=== PATIENT | female | born 1965 | race Caucasian/White ===

== ENCOUNTER → 2016-11-02 | Outpatient (CLI) | payer OTHER ==
[~2016-11-02] MED LIST: /ESCI20TA PO; ADVA230INH INH; ALBU17IN2 INH; ALBUTEROL; ASPI1TAB PO; AVELOX PO; CYCL10TA PO; HYDR10TAB PO; LISI10TA2 PO; LISI10TA4 PO; MOTR200T44 PO; PERC7.5T12 PO; PERCOCET PO; PRED20TA PO; TYLE325T5 PO; mobic PO; nicotine patch TD
[2016-11-02 08:11] LABS: MEAN CORPUSCULAR HGB CONC 31.6 g/dl (32.0-36.5); RED CELL DISTRIBUTION WIDTH 13.9 % (11.5-14.5); WHITE BLOOD COUNT 9.9 K/mm3 (4.0-10.0)
[2016-11-02 08:24] LABS: ALBUMIN 3.2 GM/DL (3.2-5.2); ALBUMIN/GLOBULIN RATIO 1.03 (1.00-1.93); ALKALINE PHOSPHATASE 96 U/L (45-117); ALT/SGPT 16 U/L (12-78); ANION GAP 6 MEQ/L (8-16); AST/SGOT 13 U/L (15-37); BILIRUBIN,TOTAL 0.3 MG/DL (0.2-1.0); BLOOD UREA NITROGEN 12 MG/DL (7-18); CALCIUM LEVEL 8.8 MG/DL (8.5-10.1); CARBON DIOXIDE LEVEL 30 MEQ/L (21-32); CHLORIDE LEVEL 107 MEQ/L (98-107); CREATININE FOR GFR 0.68 MG/DL (0.55-1.02); GLOMERULAR FILTRATION RATE > 60.0 (>58); GLUCOSE, FASTING 94 MG/DL (70-105); POTASSIUM SERUM 4.4 MEQ/L (3.5-5.1); SODIUM LEVEL 143 MEQ/L (136-145); TOTAL PROTEIN 6.3 GM/DL (6.4-8.2)
== END ==
LOC: M LAB 07:22
PROVIDERS: ATTEND Surgery
DX: D12.2 Benign neoplasm of ascending colon (principal)

== ENCOUNTER 2016-12-02 02:11 | Emergency (ER) | payer OTHER ==
[~2016-12-02] VITALS: Ht 152.4 cm; Wt 50.8 kg
[2016-12-02] MEDS ORDERED: ADACEL/BOOSTRIX VACCINE (DIPHTH/PERTUSS/ACELL/TETANUS)0.5ML SYR (90715) IM ONE (02:30)
[2016-12-02] MEDS ORDERED: CEPHALEXIN 500 MG CAP PO ONE (02:30)
[2016-12-02] MEDS ORDERED: DERMABOND TOPICAL SKIN ADHESIVE TOP ONE (02:45)
[2016-12-02] MEDS ORDERED: ACETAMINOPHEN TAB 650MG DOSE (2X325MG) PO ONE (02:45)
[2016-12-02] MEDS ORDERED: NORCO 5/325MG TABLET (BULK) PO ONE (02:45)
[2016-12-02] MEDS ORDERED: KEFL500C7 PO (02:54)
[2016-12-02] MEDS ORDERED: MOTR200T44 PO (02:55)
[2016-12-02 03:13] VITALS: BP 138/72
--- NOTE | 2016-12-02 09:58 | REP ---
RIGHT FINGER SERIES: Four views. HISTORY: Question fracture. Injury to the distal aspect of the 3rd digit. FINDINGS: Four views of the right index, long and ring fingers demonstrate normal bones, joints, and soft tissues. No fracture or subluxation is seen. No opaque foreign body noted. IMPRESSION: No fracture noted. Signed by Rafael Berkowitz MD 12/02/2016 10:14 A
== END 2016-12-02 03:15 | disposition home or self-care (01) ==
LOC: M ED 03:01
DX: S61.212A Laceration without foreign body of right middle finger without damage to nail, initial encounter (principal); S60.031A Contusion of right middle finger without damage to nail, initial encounter; W23.1XXA Caught, crushed, jammed, or pinched between stationary objects, initial encounter; Y92.89 Other specified places as the place of occurrence of the external cause; Y93.89 Activity, other specified; Y99.0 Civilian activity done for income or pay; Z88.1 Allergy status to other antibiotic agents

== ENCOUNTER 2018-08-29 13:10 | Emergency (ER) | payer OTHER ==
[2018-08-29 14:41] LABS: URIC ACID 2.7 MG/DL (2.6-6.0)
== END 2018-08-29 15:13 | disposition home or self-care (01) ==
LOC: M ED 13:10
DX: M25.571 Pain in right ankle and joints of right foot (principal); M25.471 Effusion, right ankle; J44.9 Chronic obstructive pulmonary disease, unspecified; F41.9 Anxiety disorder, unspecified; F32.9 Major depressive disorder, single episode, unspecified; F17.210 Nicotine dependence, cigarettes, uncomplicated; Z88.1 Allergy status to other antibiotic agents; Z79.899 Other long term (current) drug therapy
CPT/HCPCS: 73610

== ENCOUNTER → 2018-08-29 | Outpatient (CLI) | payer OTHER | LOC: M LRY 12:06 | DX: M25.571 Pain in right ankle and joints of right foot (principal); M79.671 Pain in right foot; Z53.9 Procedure and treatment not carried out, unspecified reason ==

== ENCOUNTER 2018-12-04 04:00 | Emergency (ER) | payer OTHER ==
[~2018-12-04] VITALS: Ht 152.4 cm; Wt 59.1 kg
[~2018-12-04 04:00] MED LIST changes: +ESCI20TA; +IBUP-1022 PO; +KEFL500C17 PO; +PERC5TAB12 PO
[2018-12-04] MEDS ORDERED: MORPHINE 4 MG/ML 1ML VIAL/SYRINGE (J2270) IV ONE (04:45)
[2018-12-04] MEDS ORDERED: AMPICILLIN SOD/SULBACTAM SOD 3 GM in D5W MINI-BAG PLUS 100 ML IV ONE (04:45)
--- NOTE | 2018-12-04 05:14 | REPVR ---
EXAM: CT Maxillofacial Without Contrast EXAM DATE/TIME: 12/04/2018 4:44 AM CLINICAL HISTORY: 53 years old, female; Pain; Jaw pain; Additional info: Eval for r lower periodontal abscess TECHNIQUE: Axial computed tomography images of the face without intravenous contrast. All CT scans at this facility use at least one of these dose optimization techniques: automated exposure control; mA and/or kV adjustment per patient size (includes targeted exams where dose is matched to clinical indication); or iterative reconstruction. Coronal and sagittal reformatted images were created and reviewed. COMPARISON: No relevant prior studies available. FINDINGS: Orbits: Unremarkable. Sinuses: Normal. No air-fluid levels. Bones/joints: No acute fracture. Soft tissues: Moderate soft tissue swelling in the right perimandibular region without any discrete abscess formation. Findings the present marked cellulitis . IMPRESSION: Moderate soft tissue swelling in the right perimandibular region without any discrete abscess formation. Findings the present marked cellulitis . Electronically signed by: Mago Skinner On 12/04/2018 05:13:59 AM
[2018-12-04] MEDS ORDERED: LIDOCAINE W/EPINEPHRINE 1% 20ML VIAL SC ONE (05:15)
[2018-12-04] MEDS ORDERED: AUGM500T34 PO (05:55)
[2018-12-04] MEDS ORDERED: NORCO 5/325MG TABLET (BULK FOR ED) PO ONE (06:00)
[2018-12-04 06:10] VITALS: BP 147/78
--- NOTE | 2018-12-04 07:32 | ED PDOC ---
Post-Departure Follow-Up ct max fac faxed to [email or web address] for fu Belkis Monson MD Dec 04, 2018 07:32
== END 2018-12-04 06:16 | disposition home or self-care (01) ==
LOC: M ED 04:00
DX: K12.2 Cellulitis and abscess of mouth (principal); R68.84 Jaw pain; F41.9 Anxiety disorder, unspecified; F32.9 Major depressive disorder, single episode, unspecified; F17.200 Nicotine dependence, unspecified, uncomplicated; Z88.1 Allergy status to other antibiotic agents; Z79.899 Other long term (current) drug therapy
CPT/HCPCS: 70486; 96374; 96375; 99284; J2270

== ENCOUNTER → 2020-03-06 | Outpatient (CLI) | payer OTHER ==
[~2020-03-06] MED LIST changes: -/ESCI20TA PO; -ASPI1TAB PO; +ASPI81TA26 PO; +AUGM500T34 PO; +CYCL-707 PO; -CYCL10TA PO; +HYDR-2773 PO; -HYDR10TAB PO; +LEXA1TAB2 PO; +LISI10TA15 PO; -LISI10TA2 PO
--- NOTE | 2020-03-07 01:45 | REP ---
Clinical: Contusion. Technique: AP, lateral, bilateral oblique views of the left fifth digit. Findings: There is a nondisplaced oblique fracture with subtle posterior angulation at the base of the proximal phalanx extending to the articular surface of the MCP joint. Impression: Oblique fracture at the base of the proximal phalanx. Electronically Signed by Srinivas Gupta MD 03/07/2020 01:37 A
== END ==
LOC: M WUC 08:18
PROVIDERS: ATTEND Nurse Practitioner Family
DX: S62.617A Displaced fracture of proximal phalanx of left little finger, initial encounter for closed fracture (principal); X58.XXXA Exposure to other specified factors, initial encounter; Y92.9 Unspecified place or not applicable

== ENCOUNTER → 2021-10-06 | Outpatient (REF) ==
[~2021-10-06] MED LIST changes: -ESCI20TA; +ESCI20TA16; +LISI10TA22 PO; -LISI10TA4 PO
== END ==
LOC: M LAB 16:23
PROVIDERS: ATTEND Nurse Practitioner Adult Health
DX: Z00.8 Encounter for other general examination (principal)

== ENCOUNTER → 2021-11-10 | Outpatient (REF) ==
[~2021-11-10] MED LIST changes: -LISI10TA15 PO; +LISI10TA24 PO
== END ==
LOC: M EMP 13:34
PROVIDERS: ATTEND Family Medicine
DX: Z11.52 Encounter for screening for COVID-19 (principal)

== ENCOUNTER → 2022-03-16 | Outpatient (CLI) | payer OTHER ==
[~2022-03-16] MED LIST changes: +ATOR1TAB21 PO; +POTA-136 PO
== END ==
LOC: M SOG 10:06
PROVIDERS: ATTEND Orthopaedic Surgery Hand Surgery
DX: M79.645 Pain in left finger(s) (principal)

== ENCOUNTER → 2022-03-29 | Outpatient (CLI) | payer OTHER ==
[~2022-03-29] MED LIST changes: +TRAM50TA2 PO
== END ==
LOC: M LABSMTC 10:14
PROVIDERS: ATTEND Anesthesiology
DX: Z01.812 Encounter for preprocedural laboratory examination (principal); Z20.822 Contact with and (suspected) exposure to COVID-19

== ENCOUNTER 2022-03-31 08:35 | Day surgery (SDC) | payer OTHER ==
[~2022-03-31] VITALS: Ht 152.4 cm; Wt 62.1 kg
[~2022-03-31 08:35] MED LIST changes: +LIDOCAINE W/EPINEPHRINE 1% 20ML VIAL XX ONE; +SODIUM BICARBONATE 8.4% INJ 50MEQ 50 ML VIAL XX ONE; -TRAM50TA2 PO
[2022-03-31] MEDS ORDERED: BACITRACIN OINTMENT 30GM TUBE As Ordered ONE (10:35)
[2022-03-31] MEDS ORDERED: TRAM50TA2 PO (10:48)
[2022-03-31 11:20] VITALS: BP 152/76
== END 2022-03-31 11:33 | disposition home or self-care (01) ==
LOC: M SDC 08:35
PROVIDERS: ATTEND Orthopaedic Surgery Hand Surgery
DX: M65.312 Trigger thumb, left thumb (principal); M65.352 Trigger finger, left little finger; K21.9 Gastro-esophageal reflux disease without esophagitis; F41.9 Anxiety disorder, unspecified; F32.A Depression, unspecified; J44.9 Chronic obstructive pulmonary disease, unspecified; F17.210 Nicotine dependence, cigarettes, uncomplicated; F12.10 Cannabis abuse, uncomplicated; Z79.899 Other long term (current) drug therapy; E78.2 Mixed hyperlipidemia; Z88.1 Allergy status to other antibiotic agents

== ENCOUNTER → 2022-04-14 | Outpatient (CLI) | payer OTHER ==
[~2022-04-14] MED LIST changes: -LIDOCAINE W/EPINEPHRINE 1% 20ML VIAL XX ONE; -SODIUM BICARBONATE 8.4% INJ 50MEQ 50 ML VIAL XX ONE; +TRAM50TA2 PO
== END ==
LOC: M LABSMTC 10:47
PROVIDERS: ATTEND Anesthesiology
DX: Z01.818 Encounter for other preprocedural examination (principal); Z11.52 Encounter for screening for COVID-19

== ENCOUNTER → 2022-08-04 | Outpatient (CLI) | payer OTHER | LOC: M LABSMTC 10:20 | PROVIDERS: ATTEND Anesthesiology | DX: Z01.812 Encounter for preprocedural laboratory examination (principal); Z11.52 Encounter for screening for COVID-19 ==

== ENCOUNTER 2023-10-05 11:29 | Emergency (ER) | payer OTHER ==
[~2023-10-05] VITALS: Ht 152.4 cm; Wt 71.4 kg
[2023-10-05] MEDS ORDERED: ONDANSETRON 4MG 2ML VIAL IV ONE (13:00)
[2023-10-05] MEDS ORDERED: MORPHINE 4 MG/ML 1ML VIAL IV ONE ×2 (13:00→15:20)
[2023-10-05] MEDS ORDERED: diphenhydrAMINE 50MG/ML VIAL IV STA (15:57)
[2023-10-05 16:00] LABS: BASO # 0.1 10^3/uL (0.0-0.2); BASO % 0.8 % (0.0-1.0); EOS # 0.2 10^3/uL (0.0-0.5); EOS % 1.9 % (0.0-3.0); HEMATOCRIT 43.5 % (36.0-47.0); HEMOGLOBIN 13.9 g/dl (12.0-15.5); LYMPH # 1.6 10^3/uL (1.5-5.0); LYMPH % 15.8 % (24.0-44.0); MEAN CORPUSCULAR HEMOGLOBIN 28.7 pg (27.0-33.0); MEAN CORPUSCULAR VOLUME 89.9 fl (80.0-96.0); MONO # 0.4 10^3/uL (0.0-0.8); MONO % 4.3 % (2.0-8.0); PLATELET COUNT, AUTOMATED 268 10^3/uL (150-450); RED BLOOD COUNT 4.84 10^6/uL (4.00-5.40); WHITE BLOOD COUNT 10.3 10^3/uL (4.0-10.0)
[2023-10-05 16:12] LABS: INR 1.03; PROTHROMBIN TIME 13.2 SECONDS (12.5-14.5)
[2023-10-05 16:13] LABS: PARTIAL THROMBOPLASTIN TIME 28.7 SECONDS (24.8-34.2)
[2023-10-05 17:27] LABS: ALBUMIN 3.6 G/DL (3.2-5.2); ALKALINE PHOSPHATASE 115 U/L (46-116); ALT/SGPT 12 U/L (7.0-40); AST/SGOT 14 U/L (<34); BILIRUBIN,TOTAL 0.5 MG/DL (0.3-1.2); BLOOD UREA NITROGEN 9 MG/DL (9-23); CALCIUM LEVEL 8.9 MG/DL (8.5-10.1); CARBON DIOXIDE LEVEL 26 MMOL/L (20-31); CHLORIDE LEVEL 107 MMOL/L (98-107); GLOMERULAR FILTRATION RATE > 60.0 (>51); GLUCOSE, FASTING 111 MG/DL (60-100); POTASSIUM SERUM 4.6 MMOL/L (3.5-5.1); SODIUM LEVEL 139 MMOL/L (136-145); TOTAL PROTEIN 6.6 G/DL (5.7-8.2)
[2023-10-05 17:30] LABS: TOTAL 25(OH) VITAMIN D 24.7 NG/ML (20.0-100.0)
[2023-10-05] MEDS ORDERED: PERC5TAB12 PO (17:37)
[2023-10-05 17:56] VITALS: BP 129/68; TEMP 98.9; O2SAT 95
[2023-10-07] MEDS ORDERED: GABA-282 PO (08:08)
== END 2023-10-05 17:58 | disposition home or self-care (01) ==
LOC: M ED 11:29 → EDBD 11:29 → M ED 17:58
DX: S42.292A Other displaced fracture of upper end of left humerus, initial encounter for closed fracture (principal); W01.0XXA Fall on same level from slipping, tripping and stumbling without subsequent striking against object, initial encounter; J45.909 Unspecified asthma, uncomplicated; J44.9 Chronic obstructive pulmonary disease, unspecified; K59.00 Constipation, unspecified; F17.200 Nicotine dependence, unspecified, uncomplicated; Z88.1 Allergy status to other antibiotic agents; Z79.52 Long term (current) use of systemic steroids; Z79.02 Long term (current) use of antithrombotics/antiplatelets; Z79.891 Long term (current) use of opiate analgesic; Z79.899 Other long term (current) drug therapy
CPT/HCPCS: 73060; 73080; 73090; 80053; 82306; 85025; 85610; 85730; 93041; 94760; 96374; 96375; 99285; J1200; J2405

== ENCOUNTER → 2023-10-06 | Outpatient (CLI) | payer OTHER ==
[~2023-10-06] MED LIST changes: +FLUT1BLS5 INH; +GABA-282 PO; +IPRA0.00 INH; +OXYC1TAB23 PO
== END ==
LOC: M SOG 08:57
PROVIDERS: ATTEND Orthopaedic Surgery
DX: S42.302A Unspecified fracture of shaft of humerus, left arm, initial encounter for closed fracture (principal); Y93.9 Activity, unspecified; Y92.9 Unspecified place or not applicable

== ENCOUNTER 2023-10-08 09:58 | Emergency (ER) | payer OTHER ==
[~2023-10-08] VITALS: Ht 152.4 cm; Wt 72.9 kg
[~2023-10-08 09:58] MED LIST changes: -FLUT1BLS5 INH; -IPRA0.00 INH; -OXYC1TAB23 PO
[2023-10-08] MEDS ORDERED: MORPHINE 4 MG/ML 1ML VIAL IV ONE ×2 (12:10→14:20)
[2023-10-08] MEDS ORDERED: MED REC IN PROGRESS XX SCH (12:45)
[2023-10-08] MEDS ORDERED: ONDANSETRON 4MG 2ML VIAL IV ONE (13:00)
[2023-10-08 13:06] LABS: BASO % 0.8 % (0.0-1.0); EOS % 0.8 % (0.0-3.0); HEMOGLOBIN 12.6 g/dl (12.0-15.5); LYMPH # 0.5 10^3/uL (1.5-5.0); LYMPH % 9.6 % (24.0-44.0); MEAN CORPUSCULAR HGB CONC 33.2 g/dl (32.0-36.5); MEAN CORPUSCULAR VOLUME 87.4 fl (80.0-96.0); MONO # 0.5 10^3/uL (0.0-0.8); MONO % 8.8 % (2.0-8.0); NEUTROPHILS # 4.3 10^3/uL (1.5-8.5); NEUTROPHILS % 79.8 % (36.0-66.0); PLATELET COUNT, AUTOMATED 195 10^3/uL (150-450); RED BLOOD COUNT 4.35 10^6/uL (4.00-5.40); WHITE BLOOD COUNT 5.3 10^3/uL (4.0-10.0)
[2023-10-08 13:28] LABS: BLOOD UREA NITROGEN 8 MG/DL (9-23); CALCIUM LEVEL 8.9 MG/DL (8.5-10.1); CARBON DIOXIDE LEVEL 27 MMOL/L (20-31); CHLORIDE LEVEL 105 MMOL/L (98-107); CREATININE FOR GFR 0.56 MG/DL (0.55-1.30); GLOMERULAR FILTRATION RATE > 60.0 (>51); GLUCOSE, FASTING 119 MG/DL (60-100); POTASSIUM SERUM 4.3 MMOL/L (3.5-5.1); SODIUM LEVEL 137 MMOL/L (136-145)
[2023-10-08 13:41] LABS: RSV AMPLIFICATION NEGATIVE (NEGATIVE)
[2023-10-08] MEDS ORDERED: MED REC CURRENTLY UNOBTAINABLE XX SCH (15:00)
[2023-10-08] MEDS ORDERED: OXYC1TAB23 PO (16:19)
[2023-10-08] MEDS ORDERED: FLUT1BLS5 INH (16:19)
[2023-10-08] MEDS ORDERED: IPRA0.00 INH (16:19)
[2023-10-08] MEDS ORDERED: HOME MED LIST COMPLETE! XX SCH (16:20)
[2023-10-08 17:09] VITALS: BP 156/93; TEMP 97.9; O2SAT 97
== END 2023-10-08 17:11 | disposition home or self-care (01) ==
LOC: M ED 09:58
DX: U07.1 COVID-19 (principal); S42.342A Displaced spiral fracture of shaft of humerus, left arm, initial encounter for closed fracture; J45.909 Unspecified asthma, uncomplicated; K59.00 Constipation, unspecified; F17.200 Nicotine dependence, unspecified, uncomplicated; Z88.1 Allergy status to other antibiotic agents; Z79.52 Long term (current) use of systemic steroids; Z79.02 Long term (current) use of antithrombotics/antiplatelets; Z79.891 Long term (current) use of opiate analgesic; Z79.899 Other long term (current) drug therapy
CPT/HCPCS: 73060; 80048; 85025; 87631; 96374; 96375; 99284; J2405

== ENCOUNTER 2023-10-11 09:45 | Observation (INO) | payer OTHER ==
[2023-10-11] VITALS (7 sets, daily range): BP systolic 107–148; BP diastolic 64–83; TEMP 96.8–98.1; O2SAT 92–99
[~2023-10-11] VITALS: Ht 152.4 cm; Wt 69.4 kg
[~2023-10-11 09:45] MED LIST changes: +FLUT1BLS5 INH; +IPRA0.00 INH; +OXYC1TAB23 PO; +TRANEXAMIC ACID INJection 1,000 MG in NS 100 ML IV ONE; +ceFAZolin SOD 2 GM in IV 1 EA IV ONE
[2023-10-11] MEDS ORDERED: ONDA-83 PO (10:52)
[2023-10-11] MEDS ORDERED: LR 1,000 ML IV SCH ×3 (10:55→15:15)
[2023-10-11] MEDS ORDERED: ROPIvacaine 0.5% 30ML VIAL PN ONE (11:35)
[2023-10-11] MEDS ORDERED: ACETAMINOPHEN 1000MG 100ML IV BAG As Ordered ONE (11:45)
[2023-10-11] MEDS ORDERED: SUGAMMADEX SODIUM 500 MG/5 ML VIAL (BRIDION) As Ordered ONE (11:45)
[2023-10-11] MEDS ORDERED: ONDANSETRON 4MG 2ML VIAL As Ordered ONE (11:45)
[2023-10-11] MEDS ORDERED: propofoL 200 MG/20 ML VIAL As Ordered ONE (11:45)
[2023-10-11] MEDS ORDERED: KETOROLAC 60MG 2ML VIAL As Ordered ONE (11:45)
[2023-10-11] MEDS ORDERED: ROCURONIUM BROMIDE 50MG/5ML VIAL As Ordered ONE (11:45)
[2023-10-11] MEDS ORDERED: LIDOCAINE 2% 100MG/5ML SDV (FOR ANES.) As Ordered ONE (11:45)
[2023-10-11] MEDS ORDERED: fentaNYL 100 MCG/2 ML INJECTION As Ordered ONE (11:46)
[2023-10-11] MEDS: MIDAZOLAM INJ 2MG/2ML VIAL IV PRN ×2 (12:19→16:41)
[2023-10-11] MEDS: fentaNYL 100 MCG/2 ML INJECTION IV PRN ×2 (12:20→16:41)
[2023-10-11] MEDS ORDERED: PHENYLephrine 500MCG 5ML (100MCG/ML) SYRINGE As Ordered ONE (12:59)
[2023-10-11] MEDS ORDERED: HYDROmorphone HCL 2MG/ML 1ML VIAL As Ordered ONE (14:59)
[2023-10-11] MEDS: ACETAMINOPHEN TAB 650MG DOSE (2X325MG) PO SCH ×2 (15:15→20:06)
[2023-10-11] MEDS ORDERED: oxyCODONE 5MG TAB PO PRN ×3 (15:15)
[2023-10-11] MEDS ORDERED: ONDANSETRON 4MG 2ML VIAL IV PRN ×2 (15:15)
[2023-10-11] MEDS ORDERED: SENNA 8.6 MG TAB (SENOKOT) PO PRN (15:15)
[2023-10-11] MEDS ORDERED: HYDROMORPHONE HCL 0.5 MG/ 0.5 ML SYRINGE IV PRN (15:15)
[2023-10-11] MEDS ORDERED: fentaNYL 100 MCG/2 ML INJECTION IV PRN (15:15)
[2023-10-11] MEDS ORDERED: PROMETHAZINE 25MG/ML 1ML VIAL IV PRN (15:45)
[2023-10-11] MEDS: ceFAZolin SOD 2 GM in IV 1 EA IV SCH (20:05)
[2023-10-11] MEDS: DOCUSATE SODIUM 100MG CAPSULE PO SCH (20:05)
[2023-10-11] MEDS: ASPIRIN 81MG ENTERIC TABLET PO SCH (20:06)
[2023-10-11] MEDS ORDERED: ATORVASTATIN 20 MG TAB PO SCH (21:00)
[2023-10-12 01:30] VITALS: BP 104/61; TEMP 97.2; O2SAT 96
[2023-10-12] MEDS: ACETAMINOPHEN TAB 650MG DOSE (2X325MG) PO SCH ×2 (02:16→09:28)
[2023-10-12] MEDS: ceFAZolin SOD 2 GM in IV 1 EA IV SCH (04:05)
[2023-10-12 05:30] VITALS: BP 103/61; TEMP 97.9; O2SAT 97
[2023-10-12 06:11] LABS: HEMATOCRIT 31.6 % (36.0-47.0); HEMOGLOBIN 10.3 g/dl (12.0-15.5); MEAN CORPUSCULAR HEMOGLOBIN 29.2 pg (27.0-33.0); MEAN CORPUSCULAR HGB CONC 32.6 g/dl (32.0-36.5); MEAN CORPUSCULAR VOLUME 89.5 fl (80.0-96.0); PLATELET COUNT, AUTOMATED 197 10^3/uL (150-450); RED BLOOD COUNT 3.53 10^6/uL (4.00-5.40)
[2023-10-12 06:22] LABS: INR 1.12; PROTHROMBIN TIME 14.1 SECONDS (12.5-14.5)
[2023-10-12 06:36] LABS: ALBUMIN 2.8 G/DL (3.2-5.2); ALKALINE PHOSPHATASE 86 U/L (46-116); ALT/SGPT < 9 U/L (7.0-40); AST/SGOT 15 U/L (<34); BILIRUBIN,TOTAL 0.6 MG/DL (0.3-1.2); BLOOD UREA NITROGEN 17 MG/DL (9-23); CALCIUM LEVEL 8.1 MG/DL (8.5-10.1); CARBON DIOXIDE LEVEL 28 MMOL/L (20-31); CHLORIDE LEVEL 104 MMOL/L (98-107); CREATININE FOR GFR 0.65 MG/DL (0.55-1.30); GLOMERULAR FILTRATION RATE > 60.0 (>51); GLUCOSE, FASTING 103 MG/DL (60-100); PHOSPHORUS LEVEL 3.9 MG/DL (2.5-4.9); POTASSIUM SERUM 3.5 MMOL/L (3.5-5.1); SODIUM LEVEL 138 MMOL/L (136-145); TOTAL PROTEIN 5.3 G/DL (5.7-8.2)
[2023-10-12] MEDS: ASPIRIN 81MG ENTERIC TABLET PO SCH (07:54)
[2023-10-12] MEDS ORDERED: FERROUS SULFATE 325MG TAB PO SCH (09:00)
[2023-10-12] MEDS ORDERED: ASCORBIC ACID 500 MG TAB PO SCH (09:00)
[2023-10-12] MEDS: DOCUSATE SODIUM 100MG CAPSULE PO SCH (09:27)
[2023-10-12 09:30] VITALS: BP 133/90; TEMP 98.2; O2SAT 96
[2023-10-12] MEDS ORDERED: ASPI81TAEC PO (10:48)
[2023-10-12] MEDS ORDERED: OXYC-517 PO (10:48)
[2023-10-12] MEDS ORDERED: CEFD1CAP9 PO (11:29)
== END 2023-10-12 11:59 | disposition home or self-care (01) ==
LOC: M SDC 09:45 → M MSPAV 09:46
PROVIDERS: ADMIT Orthopaedic Surgery; ATTEND Orthopaedic Surgery
DX: S42.302A Unspecified fracture of shaft of humerus, left arm, initial encounter for closed fracture (principal); W54.1XXA Struck by dog, initial encounter; Y92.89 Other specified places as the place of occurrence of the external cause; Y93.9 Activity, unspecified; Y99.9 Unspecified external cause status; K44.9 Diaphragmatic hernia without obstruction or gangrene; R13.10 Dysphagia, unspecified; Z87.891 Personal history of nicotine dependence; Z88.1 Allergy status to other antibiotic agents; Z79.899 Other long term (current) drug therapy
CPT/HCPCS: 24516; 36415; 64418; 73060; 76000; 80053; 80069; 85027; 85610; 97161; C1713; C1769; J0131; J0665; J0690; J0744; J1100; J1170; J1885; J2250; J2371; J2405; J2550; J3010

== ENCOUNTER → 2023-10-25 | Outpatient (CLI) | payer OTHER ==
[~2023-10-25] MED LIST changes: +ASPI81TAEC PO; +CEFD1CAP9 PO; +ONDA-83 PO; +OXYC-517 PO; -TRANEXAMIC ACID INJection 1,000 MG in NS 100 ML IV ONE; -ceFAZolin SOD 2 GM in IV 1 EA IV ONE
== END ==
LOC: M SOG 07:52
PROVIDERS: ATTEND Orthopaedic Surgery
DX: Z47.89 Encounter for other orthopedic aftercare (principal); S42.332D Displaced oblique fracture of shaft of humerus, left arm, subsequent encounter for fracture with routine healing

== ENCOUNTER → 2023-11-02 | Outpatient (CLI) | payer OTHER | LOC: M SOG 14:43 | PROVIDERS: ATTEND Orthopaedic Surgery | DX: S42.342D Displaced spiral fracture of shaft of humerus, left arm, subsequent encounter for fracture with routine healing (principal) ==

== ENCOUNTER → 2023-12-07 | Outpatient (CLI) | payer OTHER | LOC: M SOG 07:52 | PROVIDERS: ATTEND Orthopaedic Surgery | DX: S42.342D Displaced spiral fracture of shaft of humerus, left arm, subsequent encounter for fracture with routine healing (principal) ==

== ENCOUNTER → 2023-12-26 | Outpatient (CLI) | payer OTHER | LOC: M SOG 09:56 | PROVIDERS: ATTEND Orthopaedic Surgery | DX: S42.342D Displaced spiral fracture of shaft of humerus, left arm, subsequent encounter for fracture with routine healing (principal); Y92.9 Unspecified place or not applicable; Y93.9 Activity, unspecified ==

== ENCOUNTER → 2024-02-06 | Outpatient (CLI) | payer OTHER | LOC: M SOG 09:00 | PROVIDERS: ATTEND Orthopaedic Surgery | DX: S42.342D Displaced spiral fracture of shaft of humerus, left arm, subsequent encounter for fracture with routine healing (principal) ==

== ENCOUNTER → 2024-05-08 | Outpatient (CLI) | payer OTHER | LOC: M PLAIMG 08:56 | PROVIDERS: ATTEND Orthopaedic Surgery | DX: S42.342A Displaced spiral fracture of shaft of humerus, left arm, initial encounter for closed fracture (principal); Y93.9 Activity, unspecified; Y92.9 Unspecified place or not applicable ==

== ENCOUNTER → 2024-10-10 | Outpatient (CLI) | payer OTHER ==
[~2024-10-10] MED LIST changes: +GABA-1172 PO; -GABA-282 PO
== END ==
LOC: M SOG 07:52
PROVIDERS: ATTEND Orthopaedic Surgery
DX: S42.342D Displaced spiral fracture of shaft of humerus, left arm, subsequent encounter for fracture with routine healing (principal)